=== PATIENT | male | born 1950 | race Caucasian/White ===

== ENCOUNTER → 2019-12-19 09:19 | Outpatient (BNVA) | payer MEDICARE, OTHER, SELFPAY | PROVIDERS: Visit Provider Internal Medicine | DX: E11.9 Type 2 diabetes mellitus without complications (principal); I10 Essential (primary) hypertension; K75.81 Nonalcoholic steatohepatitis (NASH) | CPT/HCPCS: 80053; 80061; 83036; 84443; 85025; 85651; G0103 ==

== ENCOUNTER → 2021-02-26 11:08 | Outpatient (BNVA) | payer MEDICARE, OTHER, SELFPAY | PROVIDERS: Visit Provider Internal Medicine | DX: Z01.812 Encounter for preprocedural laboratory examination (principal); Z20.822 Contact with and (suspected) exposure to COVID-19 | CPT/HCPCS: 87635 ==

== ENCOUNTER 2021-03-05 08:33 | Day surgery (SDC) | payer MEDICARE, OTHER, SELFPAY ==
[2021-03-04 07:40] VITALS: BMI 29.0
--- NOTE | 2021-03-05 09:13 | ANES.PREANE2 ---
Pre-Anesthetic Assessment Pre-Anesthetic Assessment: Height/Weight: Height 1.85 m Weight 99.79 kg Preop Diagnosis: hemmrhoids Proposed Procedure: Operation Date: 03/05/21 10:15 Proposed Procedures p Colonoscopy 04546 Z12.11(Not Applicable) - Franco Shipman MD Familial anesthetic complications: None Was Beta Nannette taken within 24 hours: N/A Was Clonidine taken within 24 hours: N/A Last intake: > 8hrs Social: Social History: No alcohol and No tobacco Exam: Pre-Anes Outpt Exam: alert, oriented x 3, clear to auscultation bilaterally and regular rate & rhythm Airway: Cervical ROM: WNL MP: 3 Dentition: Full CV/HEM: CV/HEM: HTN Anesthetic Plan: ASA status: 2 Anesthesia: MAC Risk of > 500 ml blood loss (7ml/kg in children): No PFSH Anesthesia PFSH: Family History Grandmother Cancer Social History Smoking and tobacco status: never smoked Alcohol intake: never Adopted: No Marital status: service: No History of recent travel: No Current gender identity: Male Data Anesthesia Cardiac Studies: No Data to Display
[2021-03-05 10:05] VITALS: BP 165/87; PULSE 77; RESP 18; TEMP 36.4; O2SAT 97
[2021-03-05] MEDS: sodium chloride 0.9% 1,000 ML 30 ML IV (10:14)
--- NOTE | 2021-03-05 10:36 | W.PM.OPSFHP ---
Same Day Surgery H&P Indication for Procedure/HPI DATE OF PROCEDURE: March 05, 2021 CHIEF COMPLAINT/INDICATIONFOR SURGICAL PROCEDURE: Screening PREOP DIAGNOSIS: hemmrhoids PLANNED PROCEDRUE: Operation Date: 03/05/21 10:15 Proposed Procedures p Colonoscopy 09105 Z12.11(Not Applicable) - Franco Shipman MD Medications/Allergies* Home Medications Medication Instructions Recorded Confirmed Type potassium chloride 8 mEq 8 meq PO DAILY 12/03/19 03/04/21 History tablet,extended release hydrochlorothiazide 25 mg tablet 25 mg PO DAILY 12/22/20 03/04/21 History Allergies/Adverse Reactions Allergy/AdvReac Type Severity Reaction Status Date / Time No Known Allergies Allergy Verified 03/04/21 07:37 Current Medications: Generic Name Dose Route Start Last Admin Trade Name Freq PRN Reason Stop Dose Admin Sodium Chloride 1,000 mls @ 30 mls/hr 03/05/21 10:15 03/05/21 10:14 Sodium Chloride 0.9% IV 30 mls/hr .Q24H DANYA Administration Pertinent History/Comorbid Conditions* Family History (Updated 12/18/19 @ 13:56 by AZRA Pope) Cancer Grandmother Social History Smoking and tobacco status: never smoked Alcohol intake: never Adopted: No Marital status: service: No History of recent travel: No Current gender identity: Male Pertinent Exam Findings alert, oriented x 3, clear to auscultation bilaterally, regular rate & rhythm, operative site marked and procedure specific exam findings Recommendations Surgery/Procedure today Coding Level of Care Code Acute Systems Development Manager for [facility]
[2021-03-05 11:25] VITALS: BP 136/78; PULSE 63; RESP 18; TEMP 36.2; O2SAT 94
[2021-03-05 11:42] VITALS: BP 133/80; PULSE 71; RESP 18; O2SAT 96
== END 2021-03-05 12:16 | disposition home or self-care (01) ==
PROVIDERS: PCP Internal Medicine; Visit Provider Internal Medicine
PROC: 0DJD8ZZ Inspection of Lower Intestinal Tract, Via Natural or Artificial Opening Endoscopic (ICD-10-PCS; CPT 45378; principal; 2021-03-05 10:15)
DX: Z12.11 Encounter for screening for malignant neoplasm of colon (principal)
CPT/HCPCS: 96360; 96361; G0121; J2704; J7030

== ENCOUNTER → 2022-06-14 10:21 | Outpatient (BNVA) | payer MEDICARE, OTHER, SELFPAY | PROVIDERS: PCP Internal Medicine; Referring Provider Dermatology; Visit Provider Orthopaedic Surgery | DX: M48.062 Spinal stenosis, lumbar region with neurogenic claudication (principal) | CPT/HCPCS: 72110; 99204 ==

== ENCOUNTER → 2022-07-12 08:50 | Outpatient (BNVA) | payer MEDICARE, OTHER, SELFPAY | PROVIDERS: PCP Internal Medicine; Visit Provider Orthopaedic Surgery | DX: M48.062 Spinal stenosis, lumbar region with neurogenic claudication (principal) | CPT/HCPCS: 99213 ==

== ENCOUNTER → 2024-03-14 09:27 | Outpatient (BNVA) | payer MEDICARE, OTHER, SELFPAY | PROVIDERS: PCP Internal Medicine; Visit Provider Orthopaedic Surgery | DX: M48.062 Spinal stenosis, lumbar region with neurogenic claudication (principal); M54.9 Dorsalgia, unspecified | CPT/HCPCS: 72110; 99214 ==

== ENCOUNTER 2024-03-19 09:01 | Outpatient (CLI) | payer MEDICARE, OTHER, SELFPAY ==
--- NOTE | 2024-03-19 09:10 | MR_ITS ---
WS: [id number] MRI LUMBAR SPINE NONCONTRAST HISTORY: BACK PAIN COMPARISON: 06/10/2022 TECHNIQUE: Sagittal and axial multisequence imaging is submitted. Normal lumbar alignment with no compression fractures or marrow edema. Mild disc space narrowing and desiccation at L4-5, similar to the prior study. Conus terminates normally at L1. L1-L2: Mild disc bulging and facet and ligamentum flavum disease. No stenosis. L2-L3: Mild annular disc bulging with moderate ligamentum flavum and facet arthritis. Mild disc encro achment upon the subarticular recesses and traversing L3 nerve roots. Very mild central and bilateral subarticular recess stenosis. L3-L4: Mild annular disc bulging with marked ligamentum flavum and facet arthritis. Progression of ce ntral and subarticular recess stenosis since the prior study. Deformity of the thecal sac. Moderate t o severe central with bilateral subarticular recess and mild LEFT foraminal stenosis. L4-L5: Diffuse annular disc bulging with a small central disc protrusion. Marked ligamentum flavum an d facet arthritis. Increasing central stenosis and subarticular recess encroachment. Moderate central with mild bilateral subarticular recess and foraminal stenosis. L5-S1: Mild annular disc bulging. Small foraminal osteophytes. Very mild bilateral foraminal narrowin g. LEFT renal cyst. MR/MR lumbar spine wo con* [id number] IMPRESSION: 1. No acute fracture. 2. Progression of stenosis at L3-4 and L4-5 since 06/10/2022. 3. L3-4: Moderate to severe central with bilateral subarticular recess and LEF T foraminal stenosis. Greater disc encroachment upon the traversing L4 nerve ro ots. 4. L4-5: Moderate central with mild bilateral subarticular recess and foramina l stenosis. Small central disc protrusion. 5. L5-S1: Very mild bilateral foraminal narrowing. 6. L2-3: Mild central and bilateral subarticular recess stenosis.
== END 2024-03-19 09:02 | disposition home or self-care (01) ==
LOC: RAD 09:02
PROVIDERS: PCP Internal Medicine; Visit Provider Orthopaedic Surgery
DX: M99.63 Osseous and subluxation stenosis of intervertebral foramina of lumbar region (principal); M51.360 Other intervertebral disc degeneration, lumbar region with discogenic back pain only; M25.78 Osteophyte, vertebrae; N28.1 Cyst of kidney, acquired
CPT/HCPCS: 72148; 99214

== ENCOUNTER → 2024-04-16 08:10 | Outpatient (BNVA) | payer MEDICARE, OTHER, SELFPAY | PROVIDERS: PCP Internal Medicine; Visit Provider Orthopaedic Surgery | DX: M48.062 Spinal stenosis, lumbar region with neurogenic claudication (principal) | CPT/HCPCS: 72110; 99214 ==

== ENCOUNTER → 2025-04-14 10:42 | Outpatient (BNVA) | payer MEDICARE, OTHER, SELFPAY | PROVIDERS: PCP Family Medicine; Visit Provider Family Medicine | DX: E55.9 Vitamin D deficiency, unspecified (principal); D58.2 Other hemoglobinopathies; I10 Essential (primary) hypertension; E78.2 Mixed hyperlipidemia; R30.0 Dysuria; N40.1 Benign prostatic hyperplasia with lower urinary tract symptoms; N13.8 Other obstructive and reflux uropathy; R79.89 Other specified abnormal findings of blood chemistry | CPT/HCPCS: 80053; 80061; 81000; 82306; 82607; 83735; 84439; 84443; 85025 ==